=== PATIENT | female | born 1990 | race African-American/Black ===

== ENCOUNTER 2021-01-24 16:47 | Emergency (ER) | payer OTHER ==
[~2021-01-24] VITALS: Ht 167.6 cm; Wt 77.1 kg
[~2021-01-24 16:47] MED LIST: PREDNISONE 20 M20 MG PO; VENTOLIN HFA 1818 GM INH
[2021-01-24 18:38] LABS: URINE BILIRUBIN NEGATIVE (Negative); URINE BLOOD NEGATIVE (Negative); URINE CLARITY CLEAR; URINE COLOR YELLOW; URINE GLUCOSE-RANDOM* NEGATIVE (Negative); URINE KETONES NEGATIVE (Negative); URINE LEUKOCYTES-REFLEX NEGATIVE (Negative); URINE NITRITE-REFLEX NEGATIVE (Negative); URINE PROTEIN (DIPSTICK) NEGATIVE (Negative); URINE SPECIFIC GRAVITY 1.025 (1.005-1.035); URINE UROBILINOGEN 0.2 E.U./dl (0.2-1.0)
[2021-01-24 19:28] LABS: ABSOLUTE NEUTROPHILS 3.3 thou/uL (1.4-8.2); BASOPHILS 0.8 % (0.0-2.0); EOSINOPHILS 1.5 % (0.0-3.0); HEMATOCRIT 37.6 % (37.0-47.0); HEMOGLOBIN 12.1 gm/dL (12.0-15.0); LYMPHOCYTES 41.4 % (24.0-44.0); MCH 29.4 pg (26.0-34.0); MCHC 32.3 g/dL (28.0-37.0); MCV 91.2 fL (80.0-100.0); MONOCYTES 7.3 % (1.0-8.0); PLATELET COUNT 205 thou/uL (150-400); RBC 4.12 mil/uL (4.20-5.00); RDW 14.3 % (10.5-14.5); WBC 6.7 thou/uL (4.0-11.0)
[2021-01-24 19:36] LABS: ANION GAP 7 mmol/L (7-16); BUN 13 mg/dL (7-18); CALCIUM 9.1 mg/dL (8.5-10.1); CHLORIDE 101 mmol/L (98-107); CO2 30 mmol/L (21-32); CREATININE 0.7 mg/dL (0.6-1.0); GLUCOSE 82 mg/dL (74-106); POTASSIUM 4.7 mmol/L (3.5-5.1); SODIUM 138 mmol/L (136-145)
[2021-01-24] MEDS ORDERED: NAPROSYN500 MG PO (19:36)
[2021-01-24] MEDS ORDERED: TYLENOL325 M1 PO (19:36)
[2021-01-24 19:42] LABS: ALBUMIN 3.8 g/dL (3.4-5.0); AMYLASE 99 U/L (25-115); DIRECT BILIRUBIN < 0.1 mg/dL (<0.1-0.2); LIPASE 91 U/L (73-393); SGOT 21 U/L (15-37); SGPT 16 U/L (30-65); TOTAL BILIRUBIN 0.3 mg/dL (0.2-1.0)
[2021-01-24 20:00] VITALS: BP 128/61
== END 2021-01-24 20:01 | disposition home or self-care (01) ==
LOC: ER 16:47
PROVIDERS: Emergency Medicine
DX: R10.32 Left lower quadrant pain (principal); R42 Dizziness and giddiness